=== PATIENT | male | born 1970 | race Caucasian/White ===

== ENCOUNTER 2017-11-01 05:27 | Inpatient (IN) | payer OTHER ==
[2017-10-26 14:05] LABS: BASOPHILS % (AUTO) 0.3 % (0.0-2.0); EOSINOPHILS % (AUTO) 1.2 % (1.0-6.0); HEMATOCRIT 45.5 % (41-53); HEMOGLOBIN 16.3 g/dL (13.5-17.5); LYMPHOCYTES # (AUTO) 2.3 K/uL (1.0-4.8); LYMPHOCYTES % (AUTO) 26.4 % (22.0-44.0); MEAN CORPUSCULAR HEMOGLOBIN 34.5 pg (26.0-34.0); MEAN CORPUSCULAR HGB CONC 35.8 G/dL (31.0-37.0); MEAN CORPUSCULAR VOLUME 97 fL (80-100); MONOCYTES # (AUTO) 0.7 K/uL (0.1-1.0); MONOCYTES % (AUTO) 8.1 % (2.0-9.0); NEUTROPHILS # (AUTO) 5.6 K/uL (1.8-7.7); PLATELET COUNT (AUTO) 203 K/uL (150-450); RED BLOOD CELL COUNT(AUTO) 4.71 MIL/uL (4.50-5.90); RED CELL DISTRIBUTION WIDTH 12.1 % (11.5-14.5)
[2017-10-26 14:13] LABS: PROTHROMBIN TIME 10.1 SEC (9.4-11.6)
[2017-10-26 14:14] LABS: ANION GAP 9 mmol/L (8-16); CALCIUM, TOTAL 9.5 mg/dL (8.8-10.5); CARBON DIOXIDE 30 mmol/L (22-29); CHLORIDE 98 mmol/L (98-107); CREATININE 0.87 mg/dL (0.60-1.30); GLOMERULAR FILTR. RATE CALC > 60 mL/min (>60); GLUCOSE,RANDOM 77 mg/dL (70-110); POTASSIUM 4.4 mmol/L (3.5-5.1); SODIUM SERUM 137 mmol/L (136-145); UREA NITROGEN, BLOOD 13 mg/dL (7-18)
[2017-10-26 14:21] LABS: ALANINE AMINOTRANSFERASE 27 U/L (12-78); ALBUMIN 4.8 g/dL (3.4-5.0); ALKALINE PHOSPHATASE 76 U/L (46-116); ASPARTATE AMINOTRANSFERASE 16 U/L (15-37); BILIRUBIN,TOTAL 0.3 mg/dL (0.1-1.0); TOTAL PROTEIN, SERUM 8.2 g/dL (6.4-8.2)
[~2017-11-01] VITALS: Ht 190.5 cm; Wt 93.2 kg
[~2017-11-01 05:27] MED LIST: CETI-290 PO; DIPH25 PO; DULO60CA44 PO; EFAV1TAB PO; MIRT15 PO; OXYC10 PO; QUET100T PO; QUET200T PO; TAMS0.4C32 PO
[2017-11-01] MEDS ORDERED: RINGERS SOLUTION,LACTATED 1,000 ML IV ONE ×3 (06:00→07:02)
[2017-11-01] MEDS ORDERED: CeFAZolin 1 GM/DEXTROSE 50 ML IV ONE ×2 (06:06→06:30)
[2017-11-01] MEDS ORDERED: ACETAMINOPHEN 1000 MG/ISO-OSM 100 ML IV ONE (06:57)
[2017-11-01] MEDS ORDERED: KETAMINE HCL 50 MG/ML 10 ML VIAL ONE (06:57)
[2017-11-01] MEDS ORDERED: GUM MASTIC/STORAX/MSAL/ALCOHOL LIQUID 0.67 ML VIAL TP ONE (07:02)
[2017-11-01] MEDS ORDERED: ROCURONIUM BROMIDE 10 MG/ML 5 ML VIAL ONE (08:04)
[2017-11-01] MEDS ORDERED: HYDROmorphone HCL 50 MG/NS/PF 100 ML IV PRN (08:37)
[2017-11-01] MEDS ORDERED: DEXTROSE 5%-0.45% SODIUM CHL 1,000 ML IV PRN (08:37)
[2017-11-01] MEDS ORDERED: NALOXONE HCL 0.4 MG/ML VIAL IVP PRN (08:45)
[2017-11-01] MEDS ORDERED: ONDANSETRON HCL 4 MG/2 ML VIAL IVP PRN (08:45)
[2017-11-01] MEDS ORDERED: PROMETHAZINE HCL 12.5 MG in SODIUM CHLORIDE 0.9% 50 ML IV PRN (08:45)
[2017-11-01] MEDS ORDERED: FentaNYL CITRATE-PF 100 MCG/2 ML VIAL IVP PRN (08:45)
[2017-11-01] MEDS ORDERED: NALOXONE HCL 0.4 MG/ML VIAL IM PRN (08:45)
[2017-11-01] MEDS ORDERED: PROMETHAZINE HCL 25 MG/ML VIAL IM PRN ×2 (08:45)
[2017-11-01] MEDS ORDERED: ONDANSETRON HCL 4 MG/2 ML VIAL IM PRN (08:45)
[2017-11-01] MEDS ORDERED: DiphenhydrAMINE HCL 50 MG/ML VIAL IVP PRN (08:45)
[2017-11-01] MEDS: ACETAMINOPHEN 1000 MG/ISO-OSM 100 ML IV SCH ×3 (08:45→20:23)
[2017-11-01] MEDS ORDERED: PROMETHAZINE HCL 25 MG RECTAL SUPPOSITORY PR PRN (08:45)
[2017-11-01] MEDS ORDERED: HYDROmorphone 2 MG/ML SYRINGE IVP PRN (08:45)
[2017-11-01] MEDS ORDERED: MEPERIDINE-PF 25 MG/ML SYRINGE IVP PRN (08:45)
[2017-11-01] MEDS ORDERED: NALBUPHINE HCL 10 MG/ML VIAL IVP PRN (08:45)
[2017-11-01] MEDS: CYCLOBENZAPRINE HCL 10 MG TABLET PO SCH ×4 (09:00→20:23)
[2017-11-01] MEDS: BISACODYL 5 MG EC TABLET PO SCH (09:00)
[2017-11-01] MEDS ORDERED: MEPERIDINE-PF 25 MG/ML SYRINGE ONE (09:30)
[2017-11-01] MEDS ORDERED: ACETAMINOPHEN 1000 MG/ISO-OSM 0 ML IV ONE (10:04)
[2017-11-01] MEDS ORDERED: RINGERS SOLUTION,LACTATED 500 ML IV ONE (10:04)
[2017-11-01] MEDS ORDERED: HYDROmorphone 2 MG/ML SYRINGE ONE (10:07)
[2017-11-01 10:58] VITALS: BP 147/100
[2017-11-01 12:00] VITALS: BP 141/91
[2017-11-01 16:58] VITALS: BP 142/101
[2017-11-01] MEDS: OXYGEN THERAPY IH SCH (19:00)
[2017-11-01] MEDS ORDERED: ALBUTEROL SULFATE 2.5 MG/0.5 ML NEB SOLUTION NEB PRN (19:00)
[2017-11-01 22:48] VITALS: BP 138/74
[2017-11-01] MEDS ORDERED: MIRTAZAPINE 15 MG TABLET PO SCH (23:15)
[2017-11-01] MEDS ORDERED: QUEtiapine FUMARATE 200 MG TABLET PO SCH (23:15)
[2017-11-01 23:31] VITALS: BP 144/94
[2017-11-02] MEDS ORDERED: FentaNYL CITRATE-PF 100 MCG/2 ML VIAL IVP ONE (01:09)
[2017-11-02] MEDS ORDERED: HYDROmorphone 2 MG/ML SYRINGE IVP ONE (01:09)
[2017-11-02] MEDS ORDERED: FentaNYL CITRATE-PF 250 MCG/5 ML VIAL IVP ONE (01:09)
[2017-11-02] MEDS ORDERED: MIDAZOLAM HCL 2 MG/2 ML VIAL IVP ONE (01:09)
[2017-11-02] MEDS: ACETAMINOPHEN 1000 MG/ISO-OSM 100 ML IV SCH ×2 (02:55→09:29)
[2017-11-02 04:08] VITALS: BP 141/96
[2017-11-02] MEDS ORDERED: LIDOCAINE HCL/PF 2% 5 ML VIAL INJ ONE (05:07)
[2017-11-02] MEDS ORDERED: NEOSTIGMINE METHYLSULFATE 1 MG/ML 10 ML VIAL IVP ONE (05:07)
[2017-11-02] MEDS ORDERED: PROPOFOL 1% 20 ML VIAL IVP ONE (05:07)
[2017-11-02] MEDS ORDERED: GLYCOPYRROLATE 0.2 MG/ML VIAL IM ONE (05:07)
[2017-11-02] MEDS ORDERED: DEXAMETHASONE SOD PHOS 4 MG/ML VIAL IVP ONE (05:07)
[2017-11-02] MEDS ORDERED: ROCURONIUM BROMIDE 10 MG/ML 5 ML VIAL IVP ONE (05:07)
[2017-11-02] MEDS ORDERED: ONDANSETRON HCL 4 MG/2 ML VIAL IVP ONE (05:07)
[2017-11-02] MEDS ORDERED: METOCLOPRAMIDE HCL 5 MG/ML 2 ML VIAL IVP ONE (05:07)
[2017-11-02] MEDS ORDERED: METOPROLOL TARTRATE 5 MG/5 ML VIAL IVP ONE (05:07)
[2017-11-02 08:00] VITALS: BP 153/97
[2017-11-02] MEDS: CYCLOBENZAPRINE HCL 10 MG TABLET PO SCH ×2 (08:51→14:27)
[2017-11-02] MEDS: OXYGEN THERAPY IH SCH (08:52)
[2017-11-02] MEDS: BISACODYL 5 MG EC TABLET PO SCH (08:52)
[2017-11-02] MEDS ORDERED: QUEtiapine FUMARATE 100 MG TABLET PO SCH (09:00)
[2017-11-02] MEDS ORDERED: TAMSULOSIN HCL 0.4 MG CAPSULE PO SCH (09:00)
[2017-11-02] MEDS ORDERED: EMTRICITAB PO SCH (09:00)
[2017-11-02] MEDS ORDERED: DULoxetine HCL 60 MG CAPSULE PO SCH (09:00)
[2017-11-02] MEDS ORDERED: TENOFOVIR PO SCH (09:00)
[2017-11-02] MEDS ORDERED: EFAVIRENZ PO SCH (09:00)
[2017-11-02 12:00] VITALS: BP 153/98
== END 2017-11-02 15:45 | disposition home or self-care (01) | DRG 473 ==
LOC: 4E 05:27
PROVIDERS: ADMIT Orthopaedic Surgery Orthopaedic Surgery of the Spine; ATTEND Orthopaedic Surgery Orthopaedic Surgery of the Spine
PROC: 0RB30ZZ Excision of Cervical Vertebral Disc, Open Approach (ICD-10-PCS; 2017-11-01)
PROC: 4A11X4G Monitoring of Peripheral Nervous Electrical Activity, Intraoperative, External Approach (ICD-10-PCS; 2017-11-01)
PROC: 0RG10A0 Fusion of Cervical Vertebral Joint with Interbody Fusion Device, Anterior Approach, Anterior Column, Open Approach (ICD-10-PCS; principal; 2017-11-01 07:30)
DX: M48.02 Spinal stenosis, cervical region (principal); B19.20 Unspecified viral hepatitis C without hepatic coma; Z87.891 Personal history of nicotine dependence; Z88.2 Allergy status to sulfonamides; Z98.1 Arthrodesis status
CPT/HCPCS: 87081; 93005; 94640; 97161; 97165; C1713; G0238; J0131; J0690; J1100; J1170; J2175; J2250; J2405; J2704; J2765; J3010; J3490; J7120